=== PATIENT | male | born 1985 | race Caucasian/White ===

== ENCOUNTER 2018-05-25 18:30 | Emergency (ER) | payer OTHER ==
--- NOTE | 2018-05-25 20:00 | RAD ---
RIGHT KNEE FOUR VIEWS: 05/25/18 INDICATION: Right knee pain. Onset four days ago. COMPARISON: None. FINDINGS: There is mild right knee osteoarthrosis. No acute fracture or subluxation is evident. Small bone denilson nd seen in the proximal tibia. IMPRESSION: Mild osteoarthrosis right knee. No definite acute osseous abnormality. POS: [facility]
== END 2018-05-25 19:47 | disposition home or self-care (01) ==
LOC: SCSER 18:30
DX: M25.561 Pain in right knee (principal); Z87.891 Personal history of nicotine dependence